=== PATIENT | female | born 1990 | race Caucasian/White ===

== ENCOUNTER 2020-03-04 10:59 | Emergency (ER) | payer SELFPAY ==
[2020-03-04 11:19] VITALS: BP 155/100; PULSE 113; RESP 16; TEMP 36.8; O2SAT 99; BMI 34.4
[2020-03-04 12:43] VITALS: RESP 18
--- NOTE | 2020-03-04 12:52 | W.ED.DENTAL ---
HPI - Dental/Oral General: Chief complaint: Dental/Oral Stated complaint: DENTAL PAIN Time Seen by Provider: 03/04/20 12:32 History of Present Illness: HPI Narrative: 29-year-old female patient presents to the emergency department with 4-day onset of right upper tooth/dental pain. She reports drainage from the tooth, states when drainage occurs she gets nauseated and vomits. She reports able to keep down Sprite. She is requesting antibiotics and something for nausea. States cool compresses to the face helps with dental pain. MD Complaint: tooth pain Location: Tooth # (1,2) Onset (ago): day(s) (4) Duration: constant Severity: moderate Relieving factors: NSAIDs and other (Salt water swish and spit) Exacerbating factors: chewing, cold and heat Context: history of dental caries Associated symptoms: Reports ear or mastoid pain and gum swelling; Denies fever(s), odynophagia, sore throat or tongue swelling Treatment prior to arrival: topical analgesic Review of Systems General: Reports: 10 or more systems reviewed and unremarkable except in HPI and below Const: Reports: chills and change in appetite; Denies: fever(s), body aches, fatigue or malaise Eyes: Denies: blurry vision or eye redness ENMT: Reports: dental pain, ear or mastoid pain and sinus pain (Right cheek); Denies: throat pain, uvular edema, odynophagia, nasal discharge, nasal congestion or epistaxis Card: Reports: other (Apical rate 85); Denies: chest pain, palpitations, irregular heart rhythm or dyspnea on exertion Resp: Denies: dyspnea, productive cough, non-productive cough or wheezing GI: Reports: nausea and vomiting; Denies: abdominal pain, coffee ground emesis, dysphagia, diarrhea or pain on defecation : Denies: difficulty voiding or dysuria Musc: Denies: back pain Skin/Breast: Denies: rash or pruritus Neuro: Denies: headache(s), weakness in extremities or behavioral changes Maximino/Lymph: Denies: easy bruising All/Imm: Denies: tongue swelling PFSH ED PFSH: Family History (Updated 11/15/19 @ 10:31 by Mikki Ty LPN) Other Breast cancer Colon cancer Family history of thyroid problem Heart disease Ovarian cancer Uterine cancer Social History (Updated 11/15/19 @ 10:27 by Mikki Ty LPN) Additional social history: - Tobacco use: Alcohol use: Drug use: Female Reproductive History: Date of last menstrual period: 02/26/20 Physical Exam Const: COMMON NORMALS: no acute distress, patient oriented x3, healthy appearing and alert GENERAL APPEARANCE: cooperative, comfortable and well hydrated HENMT: COMMON NORMALS: normocephalic, atraumatic, hearing grossly normal bilaterally, TM's normal bilaterally, Normal external nose present, Normal nasal mucous membranes and turbinates present, moist oral mucous membranes and oropharynx normal HEAD & SCALP: normocephalic and atraumatic FACE & SINUS: normal facial exam, face symmetric and sinus tenderness maxillary (Right); no edema and no fluctuance NOSE: Normal external nose present and Normal nasal mucous membranes and turbinates present TYMPANIC MEMBRANE: TM's normal bilaterally MOUTH: Normal oral and palatal mucosa present, lip normal and tongue normal TEETH & GINGIVA: Yes abnormal tooth and associated gingiva, Yes caries and Yes poor dentition TEETH & GINGIVA IMAGES: 1. Dental avulsion with tenderness, gingival erythema and edema localized to tooth #1 and #2 THROAT: other (Negative Sheng's angina); posterior oropharynx not abnormal and no uvular edema Eye: COMMON NORMALS: Equal, round and reactive pupils present and EOMs intact bilaterally GENERAL EYE: appearance normal, both eyes and all related structures PUPIL: Yes Equal, round and reactive pupils present Neck/C-Spine: COMMON NORMALS: full ROM and no lymphadenopathy GENERAL: Yes normal visual inspection and Yes trachea midline CERVICAL SPINE: Yes cervical ROM normal Lymph: LYMPHATIC: no lymphadenopathy noted and other (Sub-tonsillar lymph tenderness noted without lymphadenopathy on the right) Chest: COMMONS NORMALS: normal inspection of the chest Resp: COMMON NORMALS: normal respiratory effort and clear to auscultation bilaterally AUSCULTATION: clear to auscultation bilaterally Cardio: COMMON NORMALS: regular rhythm, S1 normal heart sound present and S2 normal heart sound present RHYTHM: regular rhythm HEART SOUNDS: S1 normal heart sound present and S2 normal heart sound present GI: COMMON NORMALS: Soft to palpation and non-tender INSPECTION: Yes normal to inspection PALPATION: Yes Soft to palpation : COMMON NORMALS: Yes no CVA tenderness BLADDER/KIDNEY EXAM: Yes no CVA tenderness Back/Pelvis: COMMON NORMALS: no CVA tenderness and thoracic and lumbar spine normal to inspection Extremity: COMMON NORMALS: normal to inspection and capillary refill normal Neuro: COMMON NORMALS: patient oriented x3 and no focal motor deficits SENSORIUM/ORIENTATION: Yes alert Psych: COMMON NORMALS: mental status grossly normal, Normal thought process present and cooperative ACTIVITY/MOTOR BEHAVIOR: Yes appropriate eye contact THOUGHT PROCESS: Normal thought process present Skin: COMMON NORMALS: no rashes or lesions noted and turgor normal GENERAL SKIN EXAM: no rashes or lesions noted and turgor normal Course Vital Signs: Vital signs: Vital Signs Temperature 98.3 F 03/04/20 11:19 Pulse Rate 100 03/04/20 13:21 Respiratory Rate 18 03/04/20 12:43 Blood Pressure 140/99 03/04/20 13:21 Pulse Oximetry 99 03/04/20 11:19 Discharge Plan Discharge Patient Disposition: Home Clinical Impression: Dental abscess, Toothache Condition: Stable Prescriptions: New clindamycin HCl 300 mg capsule 300 mg PO QID 7 Days Qty: 28 RF: 0 IBU 800 mg tablet 800 mg PO TID PRN (Reason: pain) Qty: 30 RF: 0 Zofran 4 mg tablet 4 mg PO QID PRN (Reason: nausea and vomiting) 4 Days Qty: 10 RF: 0 Lidocaine Viscous 2 % solution 10 ml topical Q3H PRN (Reason: pain) Qty: 100 RF: 0 Discharge Orders: Discharge Order (Routine); Ordered 03/04/20 Ordered By: Nancy Lucio Discharge Diet: GI Soft Discharge Activity: Resume usual activity Patient Instructions: Dental Abscess (ED), Dental Caries (ED), Toothache (ED) Activity Restrictions/Additional Instructions: Warm salt water swish and spit several times daily Warm salt water half hydrogen peroxide half water spit and swish several times daily, utilize as needed for pain May apply dental wax to the area to help with sensitivity and pain Follow-up with your dentist in 7 to 10 days without fail Return to the emergency department if you develop difficulty breathing, swelling of the tongue or under the neck/tongue Return to the emergency department if you experience difficulty swallowing or swelling of the throat Take antibiotics until all gone, even if improved Do not take any [id number] medication with exception of Tylenol/acetaminophen as duplication of therapy can occur Push fluids, eat soft foods, avoid chewing on the affected side Discharge Date/Time: 03/04/20 13:23 Coding Level of Care Code ED Deputy Sheriff Lieutenant for Chg Fwd Exam Comprehensive
[2020-03-04 13:07] VITALS: BP 140/99; PULSE 100
[2020-03-04 13:21] VITALS: BP 140/99; PULSE 100
== END 2020-03-04 13:23 | disposition home or self-care (01) ==
PROVIDERS: Emergency Provider Nurse Practitioner Family
DX: K04.7 Periapical abscess without sinus (principal)
CPT/HCPCS: 12345; 99281; 99282

== ENCOUNTER 2021-01-06 11:56 | Emergency (ER) | payer MEDICAID, SELFPAY ==
--- NOTE | 2021-01-06 | USCV_ITS ---
Tuyet Sierra Age: 30 Gender: F : 1990 Exam Date: 01/06/2021 16:05 Ordering Phys: Staci Fairchild Technologist: Edelmira Powell Exam Location: [facility] – [place] Indication: Right leg pain HISTORY: Lower extremity pain. PROCEDURES: Venous duplex imaging was performed in only the right lower extremity. The following venous structures were evaluated: common femoral vein, profunda vein, proximal portion of the greater saphenous vein, superficial femoral vein, and the popliteal vein. In addition, the posterior tibial and peroneal trunk were evaluated. FINDINGS: Normal 2-D Doppler and augmentation and compressibility throughout the lower extremity venous structures. Additional imaging through the proximal calf veins also reveals no thrombus. Limited evaluation of the greater saphenous vein is patent with no thrombus.. CONCLUSIONS No evidence of right lower extremity DVT. Oscar Martínez MD (Electronically Signed) Final Date: 06 January 2021 16:59 S
[2021-01-06 13:00] VITALS: BP 145/91; PULSE 94; RESP 19; TEMP 37.7; O2SAT 97
--- NOTE | 2021-01-06 15:53 | USCV_ITS ---
Tuyet Sierra Age: 30 Gender: F : 1990 Exam Date: 01/06/2021 16:05 Ordering Phys: Staci Fairchild Technologist: Edelmira Powell Exam Location: [facility] Indication: Right leg pain HISTORY: Lower extremity pain. PROCEDURES: Venous duplex imaging was performed in only the right lower extremity. The following venous structures were evaluated: common femoral vein, profunda vein, proximal portion of the greater saphenous vein, superficial femoral vein, and the popliteal vein. In addition, the posterior tibial and peroneal trunk were evaluated. FINDINGS: Normal 2-D Doppler and augmentation and compressibility throughout the lower extremity venous structures. Additional imaging through the proximal calf veins also reveals no thrombus. Limited evaluation of the greater saphenous vein is patent with no thrombus.. CONCLUSIONS No evidence of right lower extremity DVT. Oscar Martínez MD (Electronically Signed) Final Date: 06 January 2021 16:59 S
== END 2021-01-06 20:13 ==
PROVIDERS: Emergency Provider Nurse Practitioner Family
DX: M79.661 Pain in right lower leg (principal); R22.41 Localized swelling, mass and lump, right lower limb; Z53.21 Procedure and treatment not carried out due to patient leaving prior to being seen by health care provider
CPT/HCPCS: 93971